=== PATIENT | male | born 1985 | race African-American/Black ===

== ENCOUNTER 2021-05-28 19:00 | Inpatient (IN) | payer SELFPAY ==
[2021-05-28] MEDS ORDERED: Adenosine 6 MG/2 ML VIAL ONE ×2 (19:19→19:26)
[2021-05-28] MEDS ORDERED: Diltiazem 125 MG/25 ML ONE (20:06)
[2021-05-28 20:14] LABS: CKMB 2.1 ng/mL (0-6.6)
[2021-05-28 20:24] LABS: Mean Corpuscular HGB CONC 33.2 g/dL (32.0-36.0); Mean Corpuscular Hemoglobin 30.5 pg (27.0-31.0); Mean Corpuscular Volume 91.8 fL (78.0-98.0); Mean Platelet Volume 9.8 fL (7.4-10.4); Platelet Count 142 thou/uL (130-400); RBC Distribution Width 12.2 % (11.5-14.5); Red Blood Cell (RBC) Count 5.57 mill/uL (4.70-6.10); White Blood Cell (WBC) Count 12.1 thou/uL (4.8-10.8)
[2021-05-28 20:25] LABS: #Lymphocytes 1.2 thou/uL (1.20-3.40); #Monocytes 0.6 thou/uL (0.11-0.59); #Neutrophils 10.4 thou/uL (1.40-6.50); %Basophils 0.1 % (0.0-1.0); %Eosinophils 0.2 % (0.0-10.0); %Lymphocytes 9.6 % (21.0-51.0); %Monocytes 4.7 % (0.0-10.0); %Neutrophils 85.4 % (42.0-75.0)
[2021-05-28 20:34] LABS: Chloride 106 mmol/L (98-107); Potassium 5.4 mmol/L (3.5-5.1); Sodium 137 mmol/L (136-145)
[2021-05-28 20:43] LABS: Albumin 4.5 g/dL (3.5-5.0)
[2021-05-28 20:45] LABS: Calcium 9.3 mg/dL (7.8-10.44); Glucose 101 mg/dL (70-105)
[2021-05-28 20:46] LABS: Globulin 4.4 g/dL (2.4-3.5); Protein, Total 8.9 g/dL (6.0-8.3)
[2021-05-28 20:47] LABS: Anion Gap 23 mmol/L (10-20); Bilirubin, Total 1.2 mg/dL (0.2-1.2); Carbon Dioxide 12 mmol/L (22-29)
[2021-05-28 20:48] LABS: Alkaline Phosphatase 69 U/L (40-110); Calc. Creatinine Clearance 0 mL/min (70-130)
[2021-05-28 20:49] LABS: BUN (Urea Nitrogen) 17 mg/dL (8.9-20.6)
[2021-05-28 20:50] LABS: AST (SGOT) 41 U/L (5-34)
[2021-05-28 20:51] LABS: ALT (SGPT) 15 U/L (8-55); Lipase 17 U/L (8-78)
[2021-05-28] MEDS ORDERED: Aspirin 325 MG TAB ONE (21:08)
[2021-05-28 22:49] LABS: Amphetamine Not Detected (NotDetected); Barbiturates Screen Not Detected (NotDetected); Benzodiazepine Screen Not Detected (NotDetected); Cocaine Metabolite Screen Not Detected (NotDetected); Methadone Not Detected (NotDetected); Methamphetamine Not Detected (NotDetected); Opiate Screen Not Detected (NotDetected); Oxycodone Screen Not Detected (NotDetected); Phencyclidine (PCP) Not Detected (NotDetected); THC/Cannabinoid Screen Not Detected (NotDetected); Tricyclic Screen Not Detected (NotDetected)
[2021-05-28 22:52] LABS: Anion Gap 15 mmol/L (10-20); BUN (Urea Nitrogen) 15 mg/dL (8.9-20.6); Calc. Creatinine Clearance 0 mL/min (70-130); Calcium 9.3 mg/dL (7.8-10.44); Carbon Dioxide 20 mmol/L (22-29); Chloride 106 mmol/L (98-107); Glucose 116 mg/dL (70-105); Potassium 3.8 mmol/L (3.5-5.1); Sodium 137 mmol/L (136-145)
[2021-05-28 23:16] LABS: Free T4 (Free Thyroxine) 1.03 ng/dL (0.70-1.48); Thyroid Stimulating Hormone 0.2272 uIU/mL (0.35-4.94)
[2021-05-29 00:05] LABS: Magnesium 1.6 mg/dL (1.6-2.6); Phosphorus 2.5 mg/dL (2.3-4.7)
[2021-05-29] MEDS ORDERED: Diltiazem 125 MG in Sodium Chloride 0.9% 100 ML IVPB SCH ×2 (00:30→07:44)
[2021-05-29] MEDS: Lactated Ringer's 1,000 ML IV SCH ×2 (00:33→08:51)
[2021-05-29 01:11] VITALS: BMI 20.8
[2021-05-29 01:32] LABS: Troponin I 0.102 ng/mL (< 0.028)
[2021-05-29 05:53] LABS: ALT (SGPT) 10 U/L (8-55); AST (SGOT) 13 U/L (5-34); Albumin 3.8 g/dL (3.5-5.0); Alkaline Phosphatase 56 U/L (40-110); Anion Gap 13 mmol/L (10-20); BUN (Urea Nitrogen) 12 mg/dL (8.9-20.6); Bilirubin, Total 0.7 mg/dL (0.2-1.2); Calc. Creatinine Clearance 105 mL/min (70-130); Carbon Dioxide 21 mmol/L (22-29); Chloride 106 mmol/L (98-107); Globulin 3.1 g/dL (2.4-3.5); Glucose 103 mg/dL (70-105); Potassium 3.6 mmol/L (3.5-5.1); Protein, Total 6.9 g/dL (6.0-8.3); Sodium 136 mmol/L (136-145)
[2021-05-29 06:18] LABS: #Lymphocytes 0.5 thou/uL (1.20-3.40); #Monocytes 0.4 thou/uL (0.11-0.59); #Neutrophils 5.4 thou/uL (1.40-6.50); %Basophils 0.1 % (0.0-1.0); %Eosinophils 0.2 % (0.0-10.0); %Lymphocytes 7.7 % (21.0-51.0); %Monocytes 6.4 % (0.0-10.0); %Neutrophils 85.6 % (42.0-75.0); Hemoglobin 14.8 g/dL (14.0-18.0); Mean Corpuscular HGB CONC 33.4 g/dL (32.0-36.0); Mean Corpuscular Hemoglobin 29.9 pg (27.0-31.0); Mean Corpuscular Volume 89.5 fL (78.0-98.0); Mean Platelet Volume 9.5 fL (7.4-10.4); Platelet Count 118 thou/uL (130-400); RBC Distribution Width 12.1 % (11.5-14.5); Red Blood Cell (RBC) Count 4.97 mill/uL (4.70-6.10); White Blood Cell (WBC) Count 6.3 thou/uL (4.8-10.8)
[2021-05-29 16:28] LABS: SARS-CoV-2 PCR by NAA Not Detected (NotDetected)
[2021-05-30 05:49] LABS: Anion Gap 13 mmol/L (10-20); BUN (Urea Nitrogen) 10 mg/dL (8.9-20.6); Calc. Creatinine Clearance 95 mL/min (70-130); Calcium 9.1 mg/dL (7.8-10.44); Carbon Dioxide 21 mmol/L (22-29); Chloride 104 mmol/L (98-107); Glucose 94 mg/dL (70-105); Potassium 3.9 mmol/L (3.5-5.1); Sodium 134 mmol/L (136-145)
[2021-05-30 07:43] VITALS: BP 124/67; TEMP 98.1
== END 2021-05-30 11:30 | disposition home or self-care (01) | DRG 882 ==
LOC: ERS 19:00 → 2NO 20:35
PROVIDERS: ADMIT Family Medicine; ATTEND Family Medicine
DX: F43.9 Reaction to severe stress, unspecified (principal); E87.2 Acidosis; Z20.822 Contact with and (suspected) exposure to COVID-19; R19.7 Diarrhea, unspecified; I45.81 Long QT syndrome; R77.8 Other specified abnormalities of plasma proteins; E87.8 Other disorders of electrolyte and fluid balance, not elsewhere classified; Z87.74 Personal history of (corrected) congenital malformations of heart and circulatory system; Z82.49 Family history of ischemic heart disease and other diseases of the circulatory system; Z83.3 Family history of diabetes mellitus
CPT/HCPCS: 36415; 71045; 80048; 80053; 80306; 82553; 83690; 83735; 84100; 84439; 84443; 84484; 85025; 93005; 96365; 96366; 96375; 96376; J0153; J3490; J7120; U0003; U0005